=== PATIENT | female | born 1950 | race Caucasian/White ===

== ENCOUNTER 2016-12-27 07:23 | Day surgery (SDC) | payer OTHER ==
--- NOTE | 2016-12-26 19:17 | HISTORY AND PHYSICAL ---
ADMITTED: 12/27/2016 HISTORY OF PRESENT ILLNESS: The patient is a 66-year-old female who was referred to our office by Dr. South with a chief complaint of a painful left ankle. She originally twisted it in 06/2016. States the pain kind of waxed and waned. States at approximately the first part of 10/2016 she injured it again, states she went to the emergency department, x-ray was taken that she chipped her ankle, was placed in a walking boot, says it has not gotten any better. States it continues to swell and hurt, where Dr. South sent her over for an MRI, which revealed torn lateral ligaments. States that she has exhausted conservative care, would like to proceed with surgical intervention. MEDICAL/SURGICAL HISTORY: Past medical history: Essentially noncontributory. Surgical history: Tonsils, adenoids, hemorrhoids removed, , gallbladder removed, right hip, left shoulder and left knee. PRIMARY CARE PROVIDER: Leighton South MD. MEDICATIONS: 1. None. ALLERGIES: 1. REPORTS AN ALLERGY TO ASPIRIN, WHICH SHE STATES SHE GOES INTO ANAPHYLACTIC SHOCK. SOCIAL HISTORY: She is . Never smoked. Does not drink. She is a dunbar. FAMILY HISTORY: Heart disease in her father and grandfather, hypertension in mother and father, strokes on maternal grandfather's side. REVIEW OF SYSTEMS: Ten-point review of systems noncontributory to chief complaint. PHYSICAL EXAMINATION: GENERAL: The patient is alert, oriented x3. HEENT: PERRLA. Normocephalic. HEART: Regular rate and rhythm. Regular S1 and S2. No murmurs, gallops, or rales. LUNGS: Respiration clear to auscultation. No wheezing, rhonchi, or rubs. ABDOMEN: Soft, tender, nondistended. No palpable masses. EXTREMITIES: Lower extremity/Vascular: Dorsalis pedis, posterior tibial pulses are palpable. Skin texture and turgor within normal limits. Capillary refill within normal limits. Orthopedically, there is crepitus within the left ankle. Positive anterior drawer sign with 4 mm of displacement. Pain as well with deep palpation to the sinus tarsi, as well as in the course of the calcaneal fibular ligament. NEUROLOGIC: Deep tendon reflexes, epicritic sensations are within normal limits. LAB/IMAGING: Imaging: MRI at [facility] revealed full-thickness tears of the anterior talofibular and calcaneofibular ligament, left ankle. IMPRESSION: 1. Torn anterior talofibular and calcaneofibular ligaments, left ankle. 2. Chronic instability. PLAN: The patient is scheduled for an ankle arthroscopy with debridement, as well as an ankle stabilization via Arthrex. There are no contraindications to surgery at this time. Surgery is scheduled on outpatient basis at [facility] on 2016.
[~2016-12-27 07:23] MED LIST: CITRACAL PLUS PO; POTASSIUM PO; VALTREX500 MG PO; VITAMIN D1000 UNIT PO
--- NOTE | 2016-12-27 08:05 | NUR ---
PRE OP INSTRUCTIONS GIVEN AND SAFETY ISSUES DISCUSSED PT AND SPOUSE HAD QUESTIONS ANSWERED PT CONFIRMED PROCEDURE PT VERIFIED SIGNATURE PT MARKED SITE
[2016-12-27] MEDS ORDERED: HYDROMORPHONE HC2 MG PO (11:11)
[2016-12-27] MEDS ORDERED: PHENERGAN EQUIV25 MG PO (11:11)
--- NOTE | 2016-12-27 11:13 | Provider's Discharge Care Plan ---
Problem, Goal, Plan Problem List 1. Other instability, left ankle Goals: Improve function Instructions: Follow up as directed
--- NOTE | 2016-12-27 11:13 | Provider's Discharge Care Plan ---
Problem, Goal, Plan Problem List 1. Other instability, left ankle Goals: Improve function Instructions: Follow up as directed
--- NOTE | 2016-12-27 11:29 | NUR ---
REC'D FROM OR ; SPONT RESP. HOB AND FOB ELEVATED 30 DEGREES. CMS=GOOD. INSTRUCTED TO DB; INFORMED THAT PROCEDURE COMPLETED NO C/O PONV OR PAIN.
--- NOTE | 2016-12-27 12:10 | NUR ---
GOOD RESULTS FROM PAIN MEDS./
--- NOTE | 2016-12-27 12:25 | NUR ---
PT RETURNED FROM PACU LEFT FOOT ELEVATED CAP REFILL LESS THAN 3 SEC PT C/O SOME NAUSEA. TRIED HER SMILEY TEA. THIS HELPED
--- NOTE | 2016-12-27 13:20 | NUR ---
PT C\O DISCOMFORT DILAUDID GIVEN AFTER CRACKERS
--- NOTE | 2016-12-27 14:07 | NUR ---
PT STATED FEELING BETTER REVIEWED DISCHARGE INSTRUCTIONS VERBAL AND WRITTEN PT EXPRESSED UNDERSTANDING
--- NOTE | 2016-12-27 14:47 | NUR ---
PT UP TO BR VOIDED BECAME NAUSEATED AGAIN. RESTED ON GURNEY. QUEASE EASE TRIED SEEMED TO HELP SOME PT THEN ASKING TO GO HOME REVIEWED DISCHARGE INSTRUCTIONS VERBAL AND WRITTEN PT AND SPOUSE EXPRESSED UNDERSTANDING PT DISCHARGED PER WC ACCOPANIED BY SPOUSE
--- NOTE | 2016-12-27 19:46 | OPERATIVE REPORT ---
DATE OF SURGERY: 12/27/2016 SURGEON: Negro Frias DPM PREOPERATIVE DIAGNOSIS: 1. Ankle instability and torn anterior talofibular ligament, left ankle POSTOPERATIVE DIAGNOSIS: 1. Ankle instability and torn anterior talofibular ligament, left ankle PROCEDURES PERFORMED: 1. Ankle arthroscopy with debridement 2. Lateral ankle stabilization with Arthrex internal brace HEMOSTASIS: Achieved by mid thigh tourniquet inflated to 300 mmHg pressure. TOURNIQUET TIME: Total tourniquet time: Seventy minutes. MATERIALS: 3-0 and 4-0 Polysorb, 4-0 Surgipro and one Arthrex internal brace with #2 FiberTape and 2 SwiveLocks. INJECTABLES: Injected 20 mL of 0.5% bupivacaine with epinephrine 1:200,000. COMPLICATIONS: None. CONDITION: The patient tolerated anesthesia, procedure well. INDICATIONS: The patient is a 66-year-old female who has confirmed torn anterior talofibular ligament and chronic ankle instability of her left ankle. She has exhausted conservative care and has opted to move forward and proceed with surgical intervention. She is well aware of the planned procedure. There are no contraindications to surgery at this time. SURGICAL TECHNIQUE: The patient was brought to the operating room, placed on operating table in a supine position. At this time, a general anesthetic was administered and pneumatic tourniquet was then placed mid-thigh of the left lower extremity. Left lower extremity was prepped and draped in normal sterile fashion. An intraoperative pause was carried with positive identification, proper limb, consent form verified and confirmed, as well as administration of 1 g of cefazolin. An Esmarch bandage was then utilized to exsanguinate the limb. Tourniquet was then inflated. Attention was directed to procedure #1. Ankle arthroscopy with debridement: Leg was placed sterilely in the leg walton and then an Arthrex ankle distractor was then employed. At this time, an 18-gauge needle was then placed on the anterior aspect of the lateral gutter and a #11 blade was utilized to create an incision. A mosquito hemostat was then utilized for portal dissection. A blunt trocar was then utilized. The scope was then placed in the anterolateral gutter of the left ankle. Upon entry, there was noted significant hemorrhagic synovitis, as well as remnants of the anterior talofibular ligament anteriorly and posteriorly. A corresponding medial incision was made medial to the tibialis anterior on the exterior. An 18- gauge needle was utilized to verify portal placement. An 11-blade was made for incision. A mosquito hemostat was utilized for portal dissection and a small joint shaver was then placed. Approximately 2500 mL of Lactated Ringer's were utilized throughout the procedure with the hemorrhagic synovium resected in toto. The articulating surfaces were void of any articular deficits. The scope and the shaver were removed, with the portals reapproximated with 4-0 Surgipro. Attention was then directed to procedure #2. Lateral ankle stabilization: Attention was directed to the anterior distal aspect of the fibula where a linear incision was made approximately 4 cm in length. It was deepened by sharp and blunt dissection. Superficial vessels were ligated. A Crawford elevator was then utilized to incise the periosteum on the distal anterior fibula and reflected. There are remnants of the anterior talofibular ligament at this level. A guidewire was then driven obliquely and oriented from inferior to superior and verified under fluoroscopy for not to invade the lateral gutter. A 2.7 drill was then utilized, tapped and then a FiberWire and then SwiveLock were then inserted. Dissection was carried across anterior along the course of the remnants of the anterior talofibular ligament. A baby Hohmann was then utilized on the anterior surface and neck of the talus. The retinaculum was incised and a guidewire was then driven obliquely approximately 45 degrees to the longitudinal axis and angulated towards the posteromedial malleolus. A 2.7 drill was utilized, over- drilled with the 3.4, tapped, and a SwiveLock was loaded with the FiberTape with the foot held in a neutral position; FiberTape was inserted under proper tension. The area was flushed. The remaining retinaculum and capsule were reapproximated in a [id number] fashion. Periosteum reapproximated with 3-0 Polysorb, subcutaneous with 4-0, and skin edge reapproximated in running fashion with 4-0 Surgipro. The area was locally anesthetized with the aforementioned local anesthetic. A light compressive dressing was applied. Tourniquet was released with good reactive hyperemia. The patient tolerated anesthesia and procedure well, left operating room with vital signs stable. While in recovery, written instructions dispensed. She is utilizing fracture boot. Prognosis is guarded. She will be discharged home in stable condition.
== END 2016-12-27 14:51 | disposition home or self-care (01) ==
LOC: OR SRH 07:23 → SCU SRH 07:27
PROVIDERS: Podiatrist
PROC: 0SBG4ZZ Excision of Left Ankle Joint, Percutaneous Endoscopic Approach (ICD-10-PCS; principal; 2016-12-27 09:00)
PROC: 0MUR0JZ Supplement Left Ankle Bursa and Ligament with Synthetic Substitute, Open Approach (ICD-10-PCS; principal; 2016-12-27 09:00)
DX: M25.372 Other instability, left ankle (principal); S93.492D Sprain of other ligament of left ankle, subsequent encounter; M65.872 Other synovitis and tenosynovitis, left ankle and foot
CPT/HCPCS: 29240; 50002; 60001; 70002; 80102; 80144; 83413; 83432; 83612; 83860; 84038; 84522; 90074; 90100; 95059